=== PATIENT | male | born 1950 | race Caucasian/White ===

== ENCOUNTER 2016-10-04 09:46 | Emergency (ER) | payer OTHER ==
[~2016-10-04] VITALS: Ht 172.7 cm; Wt 70.3 kg
[~2016-10-04 09:46] MED LIST: IBUPROFEN IB200 M1 PO; IBUPROFEN100 MG PO; TRAMADOL HCL100 MG PO; TRAMADOL HCL50 M1 PO
== END 2016-10-04 10:15 | disposition home or self-care (01) ==
LOC: CED 09:46
DX: L50.0 Allergic urticaria (principal); M19.90 Unspecified osteoarthritis, unspecified site; F17.200 Nicotine dependence, unspecified, uncomplicated; Z90.49 Acquired absence of other specified parts of digestive tract; Z79.899 Other long term (current) drug therapy
CPT/HCPCS: 99283